=== PATIENT | male | born 1940 | race Asian ===

== ENCOUNTER 2021-11-22 20:41 | Emergency (ER) | payer MEDICARE ==
[2021-11-22] MEDS ORDERED: AMIODARONE HCL 50 MG/ML 3 ML VIAL IVP ONE (20:43)
[2021-11-22] MEDS ORDERED: EPINEPHrine 1:10,000 [1 MG/10 ML] SYRINGE IVP ONE (20:43)
[2021-11-22] MEDS ORDERED: SODIUM BICARBONATE [ADULT] 8.4% 50 MEQ/50 ML SYRINGE IVP ONE (20:43)
[2021-11-22] MEDS ORDERED: NOREPINEPHRINE 4 MG/D5%-WATER 250 ML IV PRN (21:15)
[2021-11-22 22:35] LABS: COVID AG,FIA SOURCE NASOPHARYNGEAL
== END 2021-11-23 01:25 ==
LOC: EMS 20:42
DX: I46.9 Cardiac arrest, cause unspecified (principal); Z20.822 Contact with and (suspected) exposure to COVID-19; Z88.6 Allergy status to analgesic agent
CPT/HCPCS: 31500; 36415; 84484; 87426; 92950; 93005; 99291; J0171; J0282; J3490; 51702